=== PATIENT | female | born 1990 | race Asian ===

== ENCOUNTER 2022-09-12 19:23 | Emergency (ER) | payer BC, OTHER ==
[~2022-09-12] VITALS: Ht 154.9 cm; Wt 68.0 kg
[2022-09-12] MEDS ORDERED: IBUPROFEN 600 MG TABLET PO ONE (20:00)
[2022-09-12] MEDS ORDERED: ACETAMINOPHEN ES 500 MG TABLET PO ONE (20:00)
[2022-09-12] MEDS ORDERED: ACETAMINOPHEN ES 500 MG TABLET ONE (20:31)
[2022-09-12] MEDS ORDERED: IBUPROFEN 600 MG TABLET ONE (20:31)
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
[2022-09-12] MEDS ORDERED: IBUP-1953 PO (21:38)
[2022-09-12 22:01] VITALS: BP 118/77
== END 2022-09-12 22:02 | disposition home or self-care (01) ==
LOC: ER 19:27
DX: S20.01XA Contusion of right breast, initial encounter (principal); S80.01XA Contusion of right knee, initial encounter; S09.90XA Unspecified injury of head, initial encounter; V89.2XXA Person injured in unspecified motor-vehicle accident, traffic, initial encounter; Y93.89 Activity, other specified; Y92.89 Other specified places as the place of occurrence of the external cause; Y99.8 Other external cause status
CPT/HCPCS: 70450-TC; 71100-TC; 73564-TC

== ENCOUNTER 2023-05-09 01:18 | Emergency (ER) | payer BC ==
[~2023-05-09] VITALS: Ht 152.4 cm; Wt 64.9 kg
[~2023-05-09 01:18] MED LIST: IBUP-1953 PO
[2023-05-09 01:30] VITALS: TEMP 99.1
[2023-05-09 02:01] LABS: PREGNANCY TEST URINE QUAL NEGATIVE (NEGATIVE)
[2023-05-09 03:18] LABS: ALBUMIN 3.8 g/dL (3.4-5.0); APPEARANCE,URINE CLEAR (CLEAR); BASOPHILS % (AUTO) 0.3 % (0.0-2.0); BILIRUBIN,DIRECT 0.1 mg/dL (0.0-0.2); BILIRUBIN,TOTAL 0.3 mg/dL (0.2-1.0); BILIRUBIN,URINE NEGATIVE (NEGATIVE); BLOOD, URINE 2+ Ery/uL (NEGATIVE); CALCIUM, SERUM 9.3 mg/dL (8.5-10.1); COLOR,URINE YELLOW (YELLOW); CREATININE 0.7 mg/dL (0.6-1.3); EOSINOPHILS # (AUTO) 0.2 K/uL (0.0-0.7); EOSINOPHILS % (AUTO) 1.7 % (0.0-6.0); HEMATOCRIT 38 % (33-45); HEMOGLOBIN 12.9 g/dL (11.5-14.8); KETONES,URINE NEGATIVE (NEGATIVE); LEUKOCYTE ESTERASE ,URINE NEGATIVE (NEGATIVE); LYMPHOCYTES # (AUTO) 3.4 K/uL (0.8-4.8); LYMPHOCYTES % (AUTO) 32.3 % (20.0-44.0); MEAN CORPUSCULAR HEMOGLOBIN 27 PG (26.0-33.0); MEAN CORPUSCULAR HGB CONC 34 g/dl (31.0-36.0); MEAN CORPUSCULAR VOLUME 80 fL (82-100); MONOCYTES # (AUTO) 0.6 K/uL (0.1-1.30); MONOCYTES % (AUTO) 5.3 % (2.0-12.0); NEUTROPHILS # (AUTO) 6.4 K/uL (1.8-8.9); NEUTROPHILS % (AUTO) 60.4 % (43.0-81.0); NITRITE, URINE NEGATIVE (NEGATIVE); PLATELET COUNT (AUTO) 280 K/uL (150-450); POTASSIUM 3.9 mmol/L (3.5-5.1); PROTEIN,URINE NEGATIVE (NEGATIVE); RED BLOOD CELL COUNT(AUTO) 4.71 MIL/uL (4.0-5.2); RED CELL DISTRIBUTION WIDTH 14.3 % (11.5-15.0); TOTAL PROTEIN, SERUM 7.9 g/dL (6.4-8.2); UGLUCOSE NEGATIVE (NEGATIVE); UROBILINOGEN,URINE 0.2 EU/dL (0.2); WHITE BLOOD COUNT (AUTO) 10.6 K/uL (4.3-11.0)
[2023-05-09 04:09] LABS: ADD URINE CULTURE NO; BACTERIA,URINE Few /HPF (None Seen); WBC,URINE NONE SEEN /HPF (0-3)
[2023-05-09 04:10] LABS: INR 1.08 (0.91-1.10); PARTIAL THROMBOPLASTIN TIME 32.8 SEC (24.3-34.3); PROTHROMBIN TIME 11.4 SECS (9.2-11.1)
[2023-05-09 04:54] VITALS: BP 121/88; O2SAT 99
== END 2023-05-09 04:54 | disposition home or self-care (01) ==
LOC: ER 01:21
DX: R10.31 Right lower quadrant pain (principal); Z60.2 Problems related to living alone
CPT/HCPCS: 99285; 74177; 76856; 85025; 80048; 80076; 84703; 81001; 36415; 85730; J7050; Q9967